=== PATIENT | male | born 1980 | race Caucasian/White ===

== ENCOUNTER 2018-05-11 14:56 | Inpatient (IN) | payer OTHER ==
[2018-05-11 18:34] VITALS: BMI 21.7
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
[2018-05-11] MEDS ORDERED: P-EPHED 60MG/TRIPROLIDI 2.5MG TABLET PO PRN (19:24)
[2018-05-11] MEDS ORDERED: MAG HYDROX/AL HYDROX/SIMETH 30 ML UNIT-DOSE CUP PO PRN (19:24)
[2018-05-11] MEDS ORDERED: guaiFENesin/D-METHORPHAN HB 10 ML UNIT-DOSE CUPS PO PRN (19:24)
[2018-05-11] MEDS ORDERED: MENTHOL/PHENOL 1 EACH UD MM PRN (19:24)
[2018-05-11] MEDS ORDERED: MAGNESIUM HYDROX 2400MG/30ML ORAL SUSPENSION 30 ML CUP PO PRN (19:24)
[2018-05-11] MEDS ORDERED: LOPERAMIDE HCL 2 MG CAPSULE PO PRN (19:24)
[2018-05-11] MEDS ORDERED: MAGNESIUM CITRATE 300 ML BOTTLE PO PRN (19:24)
[2018-05-11] MEDS ORDERED: NICOTINE POLACRILEX 2 MG GUM BC PRN (19:24)
[2018-05-11] MEDS ORDERED: MELATONIN 5 MG TABLETS PO PRN (22:00)
[2018-05-11] MEDS: INSULIN SLIDING SCALE (NOVOLOG) 1 VIAL SQ SCH (23:08)
[2018-05-11] MEDS ORDERED: TUBERCULIN PPD 5 TU/0.1ML VIAL ID ONE (23:11)
[2018-05-11] MEDS: THIAMINE HCL 100 MG TABLET (FP) PO SCH (23:13)
[2018-05-11] MEDS: hydrOXYzine PAMOATE 25 MG CAPSULE (FP) PO PRN (23:13)
[2018-05-12] MEDS ORDERED: METHADONE HCL 10 MG TABLET PO SCH (06:00)
[2018-05-12] MEDS: INSULIN SLIDING SCALE (NOVOLOG) 1 VIAL SQ SCH ×3 (06:52→12:00)
[2018-05-12] MEDS ORDERED: INSULIN (NOVOLOG) ASPART 100 UNITS/ML 10ML VIAL ONE ×2 (06:52→11:17)
[2018-05-12] MEDS: PRENATAL VITAMINS W/ FOLIC ACID TABLET (FP) PO SCH (10:24)
[2018-05-12 10:27] LABS: ALBUMIN 3.5 g/dl (3.4-5.0); ALK PHOS 117 U/L (45-117); ANION GAP 7 MMOL/L (8-16); BILIRUBIN,TOTAL 0.3 mg/dL (0.2-1); BLOOD UREA NITROGEN 15 mg/dL (7-18); CHLORIDE 96 mmol/L (98-107); CO2 29 mmol/L (21-32); CREATININE 0.8 mg/dL (0.55-1.3); POTASSIUM 4.4 mmol/L (3.5-5.1); SGOT/AST 9 U/L (15-37); SGPT/ALT 16 U/L (13-61); SODIUM 132 mmol/L (136-145); TOT PROT 7.5 g/dl (6.4-8.2)
[2018-05-12 10:51] LABS: HEMATOCRIT 34.7 % (35.4-49); HEMOGLOBIN 11.7 GM/dL (11.7-16.9); MCH 28.4 pg (25.7-33.7); MCHC 33.8 g/dl (32.0-35.9); MEAN CELL VOLUME 84.1 fl (80-96); MEAN PLT VOLUME 7.7 fl (7.5-11.1); PLATELET COUNT 452 K/MM3 (134-434); RBC 4.13 M/mm3 (4.00-5.60); RDW 14.9 % (11.9-15.9); WHITE BLOOD COUNT 6.7 K/mm3 (4.0-10.0)
[2018-05-12 11:00] LABS: GLUCOSE,RANDOM 364 mg/dL (74-106)
--- NOTE | 2018-05-12 11:47 | PN ---
BHS Progress Note Note: bgm high,stated taking novolog 16 unit before each meal,ordered,bgm achs monitoring
[2018-05-12] MEDS ORDERED: Insulin (LOG) Aspart 100 UNITS/ML VIAL SQ ONE (12:00)
--- NOTE | 2018-05-12 16:08 | CONSULT ---
[facility] Psychiatric Consult - Data Date of interview: 05/12/18 Admission source: [facility] Identifying data: First admission to [facility] for this 37 y/o [place] male self-referred for rehabilitation to safeguard sobriety and address heroin/ cocaine dependence co-morbid with nicotine dependence + MDD. Direct admission to [address]. Patient is single, no children, homeless (resides at the [facility] in [place]), unemployed and supported on welfare. Substance Abuse History: Discussed with the patient in this session. Mr Demar endorses a long standing history of heroin + cocaine abuse in addition to smoking one pack of cigarettes daily. Patient is currently on methadone maintenance (70 mg/day) at a program located in [facility] ([phone]). Medical History: Reported as diabetes mellitus, bronchial asthma and peripheral neuropathy. Psychiatric History: Patient endorses a history of two psychiatric hospitalizations in [facility]. None in the [facility]. Reportedly diagnosed with Panic Disorder and MDD. Prescribed sertraline 25 mg/day + gabapentin 800 mg po tid (not corroborated by [facility] at [phone]). Mr Benz is followed by the [facility] psychiatrist at his [facility]. Denies history of suicide attempts. Physical/Sexual Abuse/Trauma History: Patient denies. Additional Comment: Urine Drug Screen Results: CHAVEZ-Cocaine, OPI-Opiates, MTD- Methadone, OXY-Oxycodone. Noted. Mental Status Exam - Mental Status Exam Alert and Oriented to: Time, Place, Person Cognitive Function: Good Patient Appearance: Well Groomed Mood: Withdrawn, Apprehensive Affect: Appropriate, Mood Congruent Patient Behavior: Fatigued, Appropriate, Cooperative Speech Pattern: Clear (bilingual ) Voice Loudness: Normal Thought Process: Intact, Goal Oriented Thought Disorder: Not Present Hallucinations: Denies Suicidal Ideation: Denies Homicidal Ideation: Denies Insight/Judgement: Fair Sleep: Fair Appetite: Good Muscle strength/Tone: Normal Gait/Station: Normal Psychiatric Findings - Problem List ([place] 1, 2,3) (1) Opioid dependence on agonist therapy Current Visit: Yes Status: Chronic (2) Cocaine use disorder Current Visit: Yes Status: Chronic (3) Nicotine dependence Current Visit: Yes Status: Chronic Qualifiers: Nicotine product type: cigarettes (4) Substance induced mood disorder Current Visit: Yes Status: Chronic - Initial Treatment Plan Initial Treatment Plan: Psychoeducation. Sleep hygiene. Support. Groups. AA/NA meetings. Zoloft 25 mg po daily. Side effects/benefits discussed with the patient. Mr Benz is agreeable with this plan of care. Observation.
[2018-05-12] MEDS ORDERED: INSULIN (NOVOLOG) ASPART 100 UNITS/ML 10ML VIAL SQ SCH (16:30)
[2018-05-12] MEDS: hydrOXYzine PAMOATE 25 MG CAPSULE (FP) PO PRN (18:31)
[2018-05-12] MEDS: THIAMINE HCL 100 MG TABLET (FP) PO SCH (21:42)
[2018-05-12] MEDS: INSULIN (LEVEMIR) 100 UNITS/ML UNITS SQ SCH (23:28)
[2018-05-12] MEDS: INSULIN (NOVOLOG) ASPART 100 UNITS/ML 10ML VIAL SQ SCH (23:30)
[2018-05-13] MEDS ORDERED: METHADONE HCL 10 MG TABLET ONE (04:11)
[2018-05-13] MEDS ORDERED: METHADONE HCL 40 MG DISPERSABLE TABLET ONE (04:11)
[2018-05-13] MEDS ORDERED: METHADONE 40 MG, METHADONE 30 MG PO ONE (06:00)
[2018-05-13] MEDS ORDERED: INSULIN (NOVOLOG) ASPART 100 UNITS/ML 10ML VIAL SQ SCH (07:00)
--- NOTE | 2018-05-13 07:59 | PN ---
[facility] Progress Note Note: Patient's blood sugar this morning was 30mg/dl. Oral juice given as per nurse, Mr. Gina Dixon. Blood sugar rechecked and is now 177mg/dl
[2018-05-13] MEDS: INSULIN (NOVOLOG) ASPART 100 UNITS/ML 10ML VIAL SQ SCH ×4 (08:20→21:36)
[2018-05-13] MEDS: PRENATAL VITAMINS W/ FOLIC ACID TABLET (FP) PO SCH (09:55)
[2018-05-13] MEDS ORDERED: ALBUTEROL SO4 8 GM HFA INHALER IH PRN (10:00)
[2018-05-13] MEDS ORDERED: INSULIN (NOVOLOG) ASPART 100 UNITS/ML 10ML VIAL ONE ×2 (11:11→15:35)
[2018-05-13 13:24] LABS: URINE APPEARANCE CLEAR; URINE BILIRUBIN NEGATIVE (<2.0 mg/dL); URINE COLOR LTYELLOW; URINE GLUCOSE (UA) 3+ (NEGATIVE); URINE KETONE NEGATIVE (NEGATIVE); URINE LEUK ESTERASE NEGATIVE (NEGATIVE); URINE NITRITE NEGATIVE (NEGATIVE); URINE PROTEIN NEGATIVE (NEGATIVE); URINE UROBILINOGEN NEGATIVE mg/dL (0.2-1.0)
[2018-05-13] MEDS ORDERED: Insulin (LOG) Aspart 100 UNITS/ML VIAL SQ ONE (14:18)
--- NOTE | 2018-05-13 14:23 | PN ---
[facility] Progress Note Note: bgm is high,will give novolog 10 unit now,bgm monitoring,ncs,motorbike courier consultation in am, fasting blood glucose in am l,
[2018-05-13] MEDS: THIAMINE HCL 100 MG TABLET (FP) PO SCH (21:35)
[2018-05-13] MEDS: INSULIN (LEVEMIR) 100 UNITS/ML UNITS SQ SCH (21:37)
[2018-05-14] MEDS ORDERED: METHADONE 40 MG, METHADONE 30 MG PO SCH (06:00)
[2018-05-14] MEDS ORDERED: INSULIN (NOVOLOG) ASPART 100 UNITS/ML 10ML VIAL ONE (07:12)
[2018-05-14 07:22] VITALS: TEMP 98.5
[2018-05-14] MEDS ORDERED: METHADONE HCL 40 MG DISPERSABLE TABLET ONE (07:43)
[2018-05-14] MEDS ORDERED: METHADONE HCL 10 MG TABLET ONE (07:43)
[2018-05-14] MEDS: METHADONE 40 MG, METHADONE 30 MG PO SCH (07:48)
[2018-05-14] MEDS: ACETAMINOPHEN 325 MG TABLET (FP) PO PRN (07:53)
[2018-05-14] MEDS: INSULIN (NOVOLOG) ASPART 100 UNITS/ML 10ML VIAL SQ SCH ×4 (07:53→21:43)
[2018-05-14] MEDS: PRENATAL VITAMINS W/ FOLIC ACID TABLET (FP) PO SCH (10:34)
--- NOTE | 2018-05-14 16:09 | PN ---
[facility] Progress Note Note: PT ADMITTED HERE TO REHAB AND ON METHADONE 70 MG PO DAILY WITH [facility] M[facility]. PT IS REQUESTING TO DETOX FROM HIS METHADONE 70 MG HERE. PT STATES HE WAS TOLD BY HIS CLINIC THE PROTOCOL BUT HE DID NOT STAY AND LEFT BEFORE COMING HERE. PT WAS REFERRED TO HIS COUNSELOR HERE TO SPEAK TO THE PATIENT. PT HAS BEEN TOLD BY THIS FAMILY DINNER SERVICE SPECIALIST THAT WE ARE NOT ABLE TO ROUTINELY DETOX HIM FROM HIS METHADONE MAINTENANCE. ALERT O X 3. AMBULATING WITH NO ACUTE DISTRESS. Vital Signs (72 hours) 05/11/18 05/11/18 05/12/18 18:31 22:35 01:22 Temperature 96.4 F L 98.8 F Pulse Rate 82 86 Respiratory 18 18 18 Rate Blood Pressure 126/91 129/87 05/12/18 05/12/18 05/13/18 03:30 06:59 00:30 Temperature 99.2 F Pulse Rate 103 H Respiratory 18 18 18 Rate Blood Pressure 134/89 05/13/18 05/13/18 05/14/18 03:30 07:00 03:30 Temperature 97.8 F Pulse Rate 97 H Respiratory 18 16 18 Rate Blood Pressure 118/75 05/14/18 07:21 Temperature 98.5 F Pulse Rate 95 H Respiratory 18 Rate Blood Pressure 120/88 Laboratory Tests 05/11/18 05/12/18 05/12/18 23:08 06:43 07:50 WBC 6.7 RBC 4.13 Hgb 11.7 Hct 34.7 L MCV 84.1 MCH 28.4 MCHC 33.8 RDW 14.9 Plt Count 452 H MPV 7.7 Sodium Potassium Chloride Carbon Dioxide Anion Gap BUN Creatinine Creat Clearance w eGFR POC Glucometer 133 370 Random Glucose Calcium Total Bilirubin AST ALT Alkaline Phosphatase Total Protein Albumin Urine Color Urine Appearance Urine pH Ur Specific [place] Urine Protein Urine Glucose (UA) Urine Ketones Urine Blood Urine Nitrite Urine Bilirubin Urine Urobilinogen Ur Leukocyte Esterase RPR Titer 05/12/18 05/12/18 05/12/18 07:50 07:50 11:11 WBC RBC Hgb Hct MCV MCH MCHC RDW Plt Count MPV Sodium 132 L Potassium 4.4 Chloride 96 L Carbon Dioxide 29 Anion Gap 7 L BUN 15 Creatinine 0.8 Creat Clearance w eGFR > 60 POC Glucometer > 600 Random Glucose 364 H* Calcium 9.0 Total Bilirubin 0.3 AST 9 L ALT 16 Alkaline Phosphatase 117 Total Protein 7.5 Albumin 3.5 Urine Color Urine Appearance Urine pH Ur Specific [place] Urine Protein Urine Glucose (UA) Urine Ketones Urine Blood Urine Nitrite Urine Bilirubin Urine Urobilinogen Ur Leukocyte Esterase RPR Titer Nonreactive 05/12/18 05/12/18 05/12/18 16:48 20:44 22:55 WBC RBC Hgb Hct MCV MCH MCHC RDW Plt Count MPV Sodium Potassium Chloride Carbon Dioxide Anion Gap BUN Creatinine Creat Clearance w eGFR POC Glucometer > 600 586 > 600 Random Glucose Calcium Total Bilirubin AST ALT Alkaline Phosphatase Total Protein Albumin Urine Color Urine Appearance Urine pH Ur Specific [place] Urine Protein Urine Glucose (UA) Urine Ketones Urine Blood Urine Nitrite Urine Bilirubin Urine Urobilinogen Ur Leukocyte Esterase RPR Titer 05/13/18 05/13/18 05/13/18 07:01 07:13 07:38 WBC RBC Hgb Hct MCV MCH MCHC RDW Plt Count MPV Sodium Potassium Chloride Carbon Dioxide Anion Gap BUN Creatinine Creat Clearance w eGFR POC Glucometer 30 44 177 Random Glucose Calcium Total Bilirubin AST ALT Alkaline Phosphatase Total Protein Albumin Urine Color Urine Appearance Urine pH Ur Specific [place] Urine Protein Urine Glucose (UA) Urine Ketones Urine Blood Urine Nitrite Urine Bilirubin Urine Urobilinogen Ur Leukocyte Esterase RPR Titer 05/13/18 05/13/18 05/13/18 08:30 11:08 13:38 WBC RBC Hgb Hct MCV MCH MCHC RDW Plt Count MPV Sodium Potassium Chloride Carbon Dioxide Anion Gap BUN Creatinine Creat Clearance w eGFR POC Glucometer > 600 > 600 Random Glucose Calcium Total Bilirubin AST ALT Alkaline Phosphatase Total Protein Albumin Urine Color Ltyellow Urine Appearance Clear Urine pH 6.0 Ur Specific [place] 1.015 Urine Protein Negative Urine Glucose (UA) 3+ H Urine Ketones Negative Urine Blood Negative Urine Nitrite Negative Urine Bilirubin Negative Urine Urobilinogen Negative Ur Leukocyte Esterase Negative RPR Titer 05/13/18 05/13/18 05/14/18 16:41 20:42 06:49 WBC RBC Hgb Hct MCV MCH MCHC RDW Plt Count MPV Sodium Potassium Chloride Carbon Dioxide Anion Gap BUN Creatinine Creat Clearance w eGFR POC Glucometer 534 248 85 Random Glucose Calcium Total Bilirubin AST ALT Alkaline Phosphatase Total Protein Albumin Urine Color Urine Appearance Urine pH Ur Specific [place] Urine Protein Urine Glucose (UA) Urine Ketones Urine Blood Urine Nitrite Urine Bilirubin Urine Urobilinogen Ur Leukocyte Esterase RPR Titer 05/14/18 11:56 WBC RBC Hgb Hct MCV MCH MCHC RDW Plt Count MPV Sodium Potassium Chloride Carbon Dioxide Anion Gap BUN Creatinine Creat Clearance w eGFR POC Glucometer 265 Random Glucose Calcium Total Bilirubin AST ALT Alkaline Phosphatase Total Protein Albumin Urine Color Urine Appearance Urine pH Ur Specific [place] Urine Protein Urine Glucose (UA) Urine Ketones Urine Blood Urine Nitrite Urine Bilirubin Urine Urobilinogen Ur Leukocyte Esterase RPR Titer NAD
[2018-05-14] MEDS: hydrOXYzine PAMOATE 25 MG CAPSULE (FP) PO PRN (21:42)
[2018-05-14] MEDS: THIAMINE HCL 100 MG TABLET (FP) PO SCH (21:42)
[2018-05-14] MEDS: INSULIN (LEVEMIR) 100 UNITS/ML UNITS SQ SCH (21:43)
[2018-05-15] MEDS ORDERED: METHADONE HCL 10 MG TABLET ONE (05:24)
[2018-05-15] MEDS ORDERED: METHADONE HCL 40 MG DISPERSABLE TABLET ONE (05:25)
[2018-05-15] MEDS: METHADONE 40 MG, METHADONE 30 MG PO SCH (06:42)
[2018-05-15] MEDS: ACETAMINOPHEN 325 MG TABLET (FP) PO PRN (06:46)
[2018-05-15 07:08] VITALS: BP 127/91; PULSE 96
[2018-05-15] MEDS: INSULIN (NOVOLOG) ASPART 100 UNITS/ML 10ML VIAL SQ SCH (08:01)
[2018-05-15] MEDS ORDERED: SERTRALINE HCL 25 MG TABLET (FP) PO SCH (10:00)
[2018-05-15] MEDS: PRENATAL VITAMINS W/ FOLIC ACID TABLET (FP) PO SCH (10:01)
--- NOTE | 2018-05-15 10:05 | PN ---
[facility] Progress Note Note: PT DECLINED TO CONTINUE WITH REHAB STATING HE WANTS TO GO BACK TO HIS CLINIC AT [facility]. PT STATES HIS GOAL IS TO GET OFF THE METHADONE EVENTUALLY AND GO TO [place] WHERE HE HAS HIS FAMILY MEMBERS . PT SAW HIS COUNSELOR AND WAS REFERRED BACK TO HIS [facility] AT [facility] ON [address], [place]. PT STATES HE HAS A PCP DR. JENKINS AT SAME LOCATION FOR MEDICAL MANAGEMENT AND HE BROUGHT HIS OWN MED HERE ON ADMISSION. NO NEED FOR ADDITIONAL COURTESY RX. Home Medications Medication Instructions Recorded Albuterol Sulfate Inhaler - 1 - 2 inh PO QID 05/11/18 [Ventolin Hfa Inhaler -] Insulin (Novolog) [Novolog] 16 units SQ ACHS 05/11/18 Omeprazole Magnesium [Acid Color Making Supervisor] 20 mg PO DAILY 05/11/18 Sertraline HCl [Zoloft -] 25 mg PO DAILY 05/11/18 Levemir 22 unit SQ HS 05/12/18 Sertraline HCl 25 mg PO DAILY 05/12/18 Vital Signs (72 hours) 05/13/18 05/13/18 05/13/18 00:30 03:30 07:00 Temperature 97.8 F Pulse Rate 97 H Respiratory 18 18 16 Rate Blood Pressure 118/75 05/14/18 05/14/18 05/15/18 03:30 07:21 00:30 Temperature 98.5 F Pulse Rate 95 H Respiratory 18 18 18 Rate Blood Pressure 120/88 05/15/18 05/15/18 03:30 07:08 Temperature 98.5 F Pulse Rate 96 H Respiratory 18 18 Rate Blood Pressure 127/91 Laboratory Tests 05/11/18 05/12/18 05/12/18 23:08 06:43 07:50 WBC 6.7 RBC 4.13 Hgb 11.7 Hct 34.7 L MCV 84.1 MCH 28.4 MCHC 33.8 RDW 14.9 Plt Count 452 H MPV 7.7 Sodium Potassium Chloride Carbon Dioxide Anion Gap BUN Creatinine Creat Clearance w eGFR POC Glucometer 133 370 Random Glucose Calcium Total Bilirubin AST ALT Alkaline Phosphatase Total Protein Albumin Urine Color Urine Appearance Urine pH Ur Specific [place] Urine Protein Urine Glucose (UA) Urine Ketones Urine Blood Urine Nitrite Urine Bilirubin Urine Urobilinogen Ur Leukocyte Esterase RPR Titer 05/12/18 05/12/1805/12/19 07:50 07:50 11:11 WBC RBC Hgb Hct MCV MCH MCHC RDW Plt Count MPV Sodium 132 L Potassium 4.4 Chloride 96 L Carbon Dioxide 29 Anion Gap 7 L BUN 15 Creatinine 0.8 Creat Clearance w eGFR > 60 POC Glucometer > 600 Random Glucose 364 H* Calcium 9.0 Total Bilirubin 0.3 AST 9 L ALT 16 Alkaline Phosphatase 117 Total Protein 7.5 Albumin 3.5 Urine Color Urine Appearance Urine pH Ur Specific [place] Urine Protein Urine Glucose (UA) Urine Ketones Urine Blood Urine Nitrite Urine Bilirubin Urine Urobilinogen Ur Leukocyte Esterase RPR Titer Nonreactive 05/12/18 05/12/18 05/12/18 16:48 20:44 22:55 WBC RBC Hgb Hct MCV MCH MCHC RDW Plt Count MPV Sodium Potassium Chloride Carbon Dioxide Anion Gap BUN Creatinine Creat Clearance w eGFR POC Glucometer > 600 586 > 600 Random Glucose Calcium Total Bilirubin AST ALT Alkaline Phosphatase Total Protein Albumin Urine Color Urine Appearance Urine pH Ur Specific [place] Urine Protein Urine Glucose (UA) Urine Ketones Urine Blood Urine Nitrite Urine Bilirubin Urine Urobilinogen Ur Leukocyte Esterase RPR Titer 05/13/18 05/13/18 05/13/18 07:01 07:13 07:38 WBC RBC Hgb Hct MCV MCH MCHC RDW Plt Count MPV Sodium Potassium Chloride Carbon Dioxide Anion Gap BUN Creatinine Creat Clearance w eGFR POC Glucometer 30 44 177 Random Glucose Calcium Total Bilirubin AST ALT Alkaline Phosphatase Total Protein Albumin Urine Color Urine Appearance Urine pH Ur Specific [place] Urine Protein Urine Glucose (UA) Urine Ketones Urine Blood Urine Nitrite Urine Bilirubin Urine Urobilinogen Ur Leukocyte Esterase RPR Titer 05/13/18 05/13/18 05/13/18 08:30 11:08 13:38 WBC RBC Hgb Hct MCV MCH MCHC RDW Plt Count MPV Sodium Potassium Chloride Carbon Dioxide Anion Gap BUN Creatinine Creat Clearance w eGFR POC Glucometer > 600 > 600 Random Glucose Calcium Total Bilirubin AST ALT Alkaline Phosphatase Total Protein Albumin Urine Color Ltyellow Urine Appearance Clear Urine pH 6.0 Ur Specific [place] 1.015 Urine Protein Negative Urine Glucose (UA) 3+ H Urine Ketones Negative Urine Blood Negative Urine Nitrite Negative Urine Bilirubin Negative Urine Urobilinogen Negative Ur Leukocyte Esterase Negative RPR Titer 05/13/18 05/13/18 05/14/18 16:41 20:42 06:49 WBC RBC Hgb Hct MCV MCH MCHC RDW Plt Count MPV Sodium Potassium Chloride Carbon Dioxide Anion Gap BUN Creatinine Creat Clearance w eGFR POC Glucometer 534 248 85 Random Glucose Calcium Total Bilirubin AST ALT Alkaline Phosphatase Total Protein Albumin Urine Color Urine Appearance Urine pH Ur Specific [place] Urine Protein Urine Glucose (UA) Urine Ketones Urine Blood Urine Nitrite Urine Bilirubin Urine Urobilinogen Ur Leukocyte Esterase RPR Titer 05/14/18 05/14/18 05/14/18 11:56 16:54 21:39 WBC RBC Hgb Hct MCV MCH MCHC RDW Plt Count MPV Sodium Potassium Chloride Carbon Dioxide Anion Gap BUN Creatinine Creat Clearance w eGFR POC Glucometer 265 281 551 Random Glucose Calcium Total Bilirubin AST ALT Alkaline Phosphatase Total Protein Albumin Urine Color Urine Appearance Urine pH Ur Specific [place] Urine Protein Urine Glucose (UA) Urine Ketones Urine Blood Urine Nitrite Urine Bilirubin Urine Urobilinogen Ur Leukocyte Esterase RPR Titer 05/15/18 06:35 WBC RBC Hgb Hct MCV MCH MCHC RDW Plt Count MPV Sodium Potassium Chloride Carbon Dioxide Anion Gap BUN Creatinine Creat Clearance w eGFR POC Glucometer 72 Random Glucose Calcium Total Bilirubin AST ALT Alkaline Phosphatase Total Protein Albumin Urine Color Urine Appearance Urine pH Ur Specific [place] Urine Protein Urine Glucose (UA) Urine Ketones Urine Blood Urine Nitrite Urine Bilirubin Urine Urobilinogen Ur Leukocyte Esterase RPR Titer NAD MEDICALLY STABLE PLAN:PT SIGNED OUT AMA. FOLLOW UP WITH [facility] TODAY AFTER DISCHARGING. FOLLOW UP WITH DR. JENKINS FOR PRIMARY CARE ABOVE FOR MEDICAL MANAGEMENT.
== END 2018-05-15 10:15 | disposition left against medical advice (07) | DRG 770 ==
LOC: YASAS 14:56 → Y5N 19:33
PROVIDERS: ADMIT Neuromusculoskeletal Medicine & OMM; ATTEND Neuromusculoskeletal Medicine & OMM
PROC: HZ41ZZZ Group Counseling for Substance Abuse Treatment, Behavioral (ICD-10-PCS; principal; 2018-05-11)
DX: F11.20 Opioid dependence, uncomplicated (principal); F14.20 Cocaine dependence, uncomplicated; F17.210 Nicotine dependence, cigarettes, uncomplicated; F19.24 Other psychoactive substance dependence with psychoactive substance-induced mood disorder; F41.0 Panic disorder [episodic paroxysmal anxiety]; E10.65 Type 1 diabetes mellitus with hyperglycemia; Z79.4 Long term (current) use of insulin
CPT/HCPCS: 36415; 80053; 81003; 82962; 85027; 86593